=== PATIENT | female | born 1995 | race Caucasian/White ===

== ENCOUNTER 2022-12-14 09:59 | Inpatient (IN) | payer BC, OTHER ==
[2022-12-14] MEDS ORDERED: Sodium Chloride 0.9% 10 ML Syringe FLUSH PRN (19:25)
[2022-12-14] MEDS ORDERED: Nalbuphine 10 MG/0.5 ML Syringe IVPUSH PRN (19:25)
[2022-12-14] MEDS: Misoprostol 25 MCG (1/4 of 100 MCG) Tab VAG SCH (19:43)
[2022-12-14] MEDS: Mometasone Furoate HFA 200 mcg/Puff 13 GM Inhaler INH SCH (20:33)
[2022-12-14] MEDS ORDERED: Sodium Chloride 0.9% 10 ML Syringe FLUSH SCH (21:00)
[2022-12-14] MEDS ORDERED: guaiFENesin 600 MG Tab.ER PO ONE (21:02)
[2022-12-14] MEDS ORDERED: ePHEDrine 50 MG/ML SDV IVPUSH PRN (21:22)
[2022-12-14] MEDS ORDERED: diphenhydrAMINE 50 MG/ML SDV IVPUSH PRN (21:22)
[2022-12-14] MEDS ORDERED: fentaNYL 100 MCG/2 ML SDV EPIDUR PRN (21:22)
[2022-12-15] MEDS: Lactated Ringers 1,000 ML IV SCH ×2 (01:13→02:12)
[2022-12-15] MEDS: Bupivacaine/fentaNYL/NS 100 ML Bag EPIDUR PRN ×2 (02:10→09:08)
[2022-12-15] MEDS: Misoprostol 25 MCG (1/4 of 100 MCG) Tab VAG SCH ×2 (02:11→03:13)
[2022-12-15] MEDS ORDERED: Oxytocin/Lactated Ringers 10 UNIT/1,000 ML BAG IV SCH (03:15)
[2022-12-15] MEDS ORDERED: Ondansetron 4 MG/2 ML SDV IVPUSH ONE (07:10)
[2022-12-15] MEDS: Mometasone Furoate HFA 200 mcg/Puff 13 GM Inhaler INH SCH (09:08)
[2022-12-15] MEDS ORDERED: Ropivacaine 0.2% PF 2 MG/ML 20 ML SDV ONE (10:00)
[2022-12-15] MEDS ORDERED: Benzocaine/Menthol 20%-0.5% Spray 78 GM Cannister TOP PRN (11:22)
[2022-12-15] MEDS ORDERED: Witch Hazel Medicated Pads 40/Jar TOP PRN (11:22)
[2022-12-15] MEDS: Acetaminophen 325 MG Tab PO PRN ×2 (14:10→22:22)
[2022-12-15] MEDS: Ibuprofen 600 MG Tab PO PRN (20:05)
[2022-12-16] MEDS: Ibuprofen 600 MG Tab PO PRN ×4 (03:59→21:25)
[2022-12-16] MEDS: Acetaminophen 325 MG Tab PO PRN ×2 (14:31→20:15)
[2022-12-17] MEDS: Acetaminophen 325 MG Tab PO PRN (02:02)
== END 2022-12-17 11:45 | disposition home or self-care (01) | DRG 560 ==
LOC: JD.OB 09:59 → OBSVTOIN 12-15 09:59 → JD.OB 12-15 10:00
PROVIDERS: ADMIT Family Medicine; ATTEND Family Medicine
PROC: 10E0XZZ Delivery of Products of Conception, External Approach (ICD-10-PCS; principal; 2022-12-15)
PROC: 0HQ9XZZ Repair Perineum Skin, External Approach (ICD-10-PCS; 2022-12-15)
PROC: 3E0P7VZ Introduction of Hormone into Female Reproductive, Via Natural or Artificial Opening (ICD-10-PCS; 2022-12-15)
PROC: 3E0R3BZ Introduction of Anesthetic Agent into Spinal Canal, Percutaneous Approach (ICD-10-PCS; 2022-12-15)
PROC: 00HU33Z Insertion of Infusion Device into Spinal Canal, Percutaneous Approach (ICD-10-PCS; 2022-12-15)
PROC: 10907ZC Drainage of Amniotic Fluid, Therapeutic from Products of Conception, Via Natural or Artificial Opening (ICD-10-PCS; 2022-12-15)
DX: O99.52 Diseases of the respiratory system complicating childbirth (principal); Z37.0 Single live birth; O70.0 First degree perineal laceration during delivery; O69.81X0 Labor and delivery complicated by cord around neck, without compression, not applicable or unspecified; O71.82 Other specified trauma to perineum and vulva; J45.909 Unspecified asthma, uncomplicated; Z3A.39 39 weeks gestation of pregnancy; Z79.899 Other long term (current) drug therapy
CPT/HCPCS: 01967; 36415; 51702; 59025; 59409; 85027; 86592; 94640; A9270-GY; J2300; J2405; J2590; J2795; J3490; J7120